=== PATIENT | female | born 1940 | race Caucasian/White ===

== ENCOUNTER 2024-11-23 15:23 | Emergency (ER) | payer BC, SELFPAY ==
[2024-11-23 15:28] VITALS: BP 159/101
[2024-11-23 21:16] VITALS: BMI 33.8
[2024-11-23 21:51] VITALS: BP 154/71
--- NOTE | 2024-11-23 22:16 | ED.MUSCINJ ---
HPI-Injury
General
Chief Complaint: Fall
Source: patient
Exam Limitations: none
Time Seen by Provider: 11/23/24 21:21
Nursing documentation reviewed up to this point in time: agreed with
History of Present Illness-Injury
Is this injury a work related problem?: No
Is pt an associate of [facility] [place]?: No
Initial Injury comments:
Patient to ED after trip and fall. Fell onto her left side. Denies hitting her head. COmplains of pain and swelling to her left foot, left lateral ribs. Incident occurred this AM. Brouoght to ED by daughter for eval.
Past History
Past History
ED Past Medical History: CAD, GERD, HTN, Hypercholesterolemia, Psychiatric (Anxiety) and Other (Osteoarthritis, spinal stenosis, upper GI bleed)
ED Past Surgical History: Bowel resection (Paraesophageal hernia repair fundoplication December 2014), Cholecystectomy, Orthopedic (Lumbar laminectomy, bilateral knee replacements, right total hip) and Tonsilectomy
Social History
Tobacco: Former smoker (Quit 15 years ago)
Alcohol: None
Personal: Single
Living: alone
Employment: Retired
Family History
Family History: Other (Noncontributory)
Review of Systems
Review of Systems
Allergies reviewed?: Yes
All Other Systems: ROS reviewed and negative except as documented in HPI and ROS
Constitutional: Reports no symptoms
EENT: Reports no symptoms
Respiratory: Reports no symptoms
Cardiac: Reports no symptoms
ABD/GI: Reports no symptoms
: Reports no symptoms
Musculoskeletal: Reports joint pain (pain to left distal dorsal foot, left lateral ribs)
Skin: Reports no symptoms
Neurological: Reports no symptoms
Psychiatric: Reports no symptoms
Musculoskeletal Injury Exam
Musculoskeletal Injury Exam
Left Distal Dorsal Foot:
Pain with Movement?: Moderate
Tender to palpation?: Moderate
Soft tissue swelling?: Moderate
External deformity and angulation?: None
Joint effusion?: None
Contusion?: Moderate
Hematoma-local bleeding into tissue?: Moderate
Strain- Sprain- Tear (Connective tissue injury)?: Moderate
Crepitus with movement?: No
Joint instability?: No
Malalignment/deformity?: No
Range of motion: Limited
Distal skin color and temperature: normal-warm & good color
Capillary Refill: normal
Normal distal neurovascular exam?: Yes
Peripheral Pulses: posterior tibial (left): 3+ and dorsalis pedis (left): 3+
Left Lateral Ribs:
Pain with Movement?: Mild
Tender to palpation?: Mild
Soft tissue swelling?: None
External deformity and angulation?: None
Joint effusion?: None
Contusion?: Mild
Hematoma-local bleeding into tissue?: None
Strain- Sprain- Tear (Connective tissue injury)?: None
Crepitus with movement?: No
Joint instability?: No
Malalignment/deformity?: No
Range of motion: Full
Distal skin color and temperature: normal-warm & good color
Capillary Refill: normal
Normal distal neurovascular exam?: Yes
Phy Exam
General Physical Exam
General Presentation: mild distress
General age: appears stated age
General Skin: warm and dry
General Habitus: normal
General Mental: alert
Cardiovascular Exam
Cardiovascular Exam: regular rate/rhythm and no edema
Pulmonary Exam
Pulmonary Exam: lungs clear and no respiratory distress
Gastrointestinal Exam
Gastrointestinal Exam: normal bowel sounds, non tender, soft, no organomegaly and non distended
Musculoskeletal Exam
Musculoskeletal Exam: full ROM and neuro vasc intact
Skin Exam
Skin Exam: normal color, warm/dry and no rash
Psychiatric Exam
Psychiatric Exam: normal mood/affect
Injury Course
Orders/Labs/Results
Orders:
Orders
11/23/24 15:32
Foot, Left 3 View [CR Foot - Left Min 3 Views] Urgent
Comment:
Reason For Exam: fall
Ribs, Left 3 View W/PA Chest CR [CR Ribs-left 3 Vw W/pa Chest] Urgent
Comment:
Reason For Exam: fall
11/23/24 21:33
Ortho Boot Left- Treatment ONCE
Short or tall?: Short
*Radiology
Radiology exam reviewed: radiology read reviewed
*Pulse Oximetry
SaO2: 98
Oxygen Mode of Delivery: Room air
Patient hypoxic: no
*Critical Care Note
Total Time (30-74mins, 75-104mins- exclusive of procedures): Not Applicable
ED Attending Note
-
Portions of this chart may have been created with voice recognition software.� Occasional wrong word or��sound alike� substitutions may have occurred due to the inherent limitations of voice recognition software.
Discharge Plan
Departure
Patient Disposition: Home (Routine Discharge)
Date of Disposition: 11/23/24
Time of Disposition: 21:34
Patient with high blood pressure during this ER visit?: No
Condition: Good
Covid-19: Not Applicable
Discharge Problem:
Foot fracture, left
Instructions: Contusion (DC), Preventing falls in adults, Cold therapy for pain, Foot Fracture
Prescriptions:
No Action
fluticasone propionate 1 SPRAY spray,suspension
1 spray intranasal DAILY
metoprolol succinate 100 MG tablet extended release 24 hr
100 mg PO DAILY Qty: 1 0RF
tramadol [Ultram] 50 MG tablet
50 mg PO Q6H PRN (Reason: pain) Qty: 21 0RF
Rx Instructions:
1-2 tabs q6h prn pain
Aspirin [Vazalore] 81 MG Capsule
81 mg PO DAILY
losartan 100 MG tablet
100 mg PO DAILY
evolocumab [Repatha Syringe] 140 MG/ML syringe
140 mg SQ MONTHLY
pantoprazole 40 MG tablet,delayed release (DR/EC)
40 mg PO DAILY Qty: 30 0RF
amlodipine 5 MG tablet
5 mg PO DAILY Qty: 30 0RF
Referrals:
Milan Contreras MD [Non-Admitting Privileges, Orthopedics] - Call in 1-3 days for appt
Lisa Edwards PA [Family Provider, Family Practice]
Interventions
Interventions:
*Risk Screen - Suicide Last Done: 11/23/24 15:32
*Neglect/Abuse Screening Last Done: 11/23/24 15:32
*Nursing Disposition Last Done: 11/23/24 21:53
ED-Musculoskeletal Assessment Last Done: 11/23/24 20:15
ED- Neurological Assessment Last Done: 11/23/24 20:15
ED-Skin Assessment Last Done: 11/23/24 20:15
Discharge Date and Time
Discharge Date/Time: 11/23/24 21:53
Print Language: TONGAN
== END 2024-11-23 21:53 | disposition home or self-care (01) ==
LOC: EMR 15:23
PROVIDERS: EMERGENCY PHYSICIAN Emergency Medicine; FAMILY PHYSICIAN Physician Assistant Medical
DX: S92.902A Unspecified fracture of left foot, initial encounter for closed fracture (principal); S20.212A Contusion of left front wall of thorax, initial encounter; W01.0XXA Fall on same level from slipping, tripping and stumbling without subsequent striking against object, initial encounter; I10 Essential (primary) hypertension; I25.10 Atherosclerotic heart disease of native coronary artery without angina pectoris; E78.00 Pure hypercholesterolemia, unspecified; K21.9 Gastro-esophageal reflux disease without esophagitis; F41.9 Anxiety disorder, unspecified; M48.00 Spinal stenosis, site unspecified; M19.90 Unspecified osteoarthritis, unspecified site; K44.9 Diaphragmatic hernia without obstruction or gangrene; D64.9 Anemia, unspecified; M81.0 Age-related osteoporosis without current pathological fracture; Z96.653 Presence of artificial knee joint, bilateral; Z98.0 Intestinal bypass and anastomosis status; Z90.49 Acquired absence of other specified parts of digestive tract; Z87.891 Personal history of nicotine dependence
CPT/HCPCS: 99284; 29515; 71101; 73630